=== PATIENT | male | born 1960 | race Caucasian/White ===

== ENCOUNTER 2018-03-29 12:45 | Emergency (ER) | payer OTHER, MEDICAID, SELFPAY ==
--- NOTE | 2018-03-29 12:54 | ED.BACK ---
HPI - Back Pain/Injury <NOEMI Dale - Last Filed: 03/29/18 22:44> General Chief Complaint: Back Pain/Injury Stated Complaint: BACK PAIN Time Seen by Provider: 03/29/18 13:03 History of Present Illness HPI Narrative: 57-year-old male here for complaint of pain into his left back area that started this morning. He denies any trauma to the area. He states he woke up with the pain. Pain is to metal the back of left paraspinal area. He denies any urinary symptoms. No abdominal pain. No shortness of breath. Patient is ambulatory into the emergency room. He denies any loss of bladder or bowel control. He does state that he has had a cough for the last few days that is nonproductive. Related Data Previous Rx's Medication Instructions Recorded cyclobenzaprine 10 mg PO TID PRN #12 tab 03/29/18 Allergies Allergy/AdvReac Type Severity Reaction Status Date / Time No Known Drug Allergies Allergy Verified 03/29/18 13:31 Review of Systems <NOEMI Dale - Last Filed: 03/29/18 22:44> Constitutional Denies chills, Denies fever(s), Denies lethargy and Denies weakness ENT Ears, Nose, Mouth, and Throat: Denies change in voice, Denies neck pain and Denies sore throat Cardiovascular Denies chest pain, Denies irregular heart rhythm, Denies lightheadedness, Denies palpitations and Denies orthopnea Respiratory Reports cough Gastrointestinal Gastrointestinal: Denies abdominal pain, Denies change in bowel habits, Denies diarrhea, Denies nausea and Denies vomiting Genitourinary Denies hematuria, Denies flank pain, Denies urinary incontinence and Denies urinary urgency Musculoskeletal Reports back pain and Denies neck pain Integumentary/Breasts Denies pruritus, Denies erythema, Denies rash and Denies wounds Neurologic Denies weakness Endocrine Denies palpitations Exam <NOEMI Dale - Last Filed: 03/29/18 22:44> Initial Vital Signs Initial Vital Signs: Vital Signs Temperature 97.4 F L 03/29/18 12:56 Pulse Rate 96 H 03/29/18 12:56 Respiratory Rate 20 03/29/18 12:56 Blood Pressure 132/76 H 03/29/18 12:56 Pulse Oximetry 100 03/29/18 12:56 Const General: cooperative and well developed Nutritional Appearance: well nourished Orientation: alert, awake, oriented x3 and not confused HENFL Mouth: oral mucosae normal and moist mucous membranes Eyes Conjunctivae: conjunctivae normal Sclera: sclerae normal Pupils: PERRL EOM: EOM intact bilaterally Chest Chest: normal inspection of the chest Resp Effort & Inspection: normal respiratory effort, able to speak in complete sentences, no respiratory distress and no use of accessory muscles Auscultation: clear to auscultation bilaterally, no rales, no rhonchi and no wheezes Cardio Rate: regular rate Rhythm: abnormal rhythm regularly irregular Heart Sounds: no click, no gallops, no murmurs and no rubs Pulses: normal peripheral pulses Skin General: no rashes or lesions noted, No jaundice and No petechiae Neuro General: alert, oriented x3, gait normal and no focal motor deficits Speech: speech normal <Danyel Medrano DO - Last Filed: 03/30/18 08:47> Initial Vital Signs Initial Vital Signs: Vital Signs Temperature 97.4 F L 03/29/18 12:56 Pulse Rate 96 H 03/29/18 12:56 Respiratory Rate 20 03/29/18 12:56 Blood Pressure 132/76 H 03/29/18 12:56 Pulse Oximetry 100 03/29/18 12:56 Course <NOEMI Dale - Last Filed: 03/29/18 22:44> Orders Ordered: Discontinued Medications Cyclobenzaprine HCl (Flexeril) 10 mg PO NOW ONE Stop: 03/29/18 13:15 Last Admin: 03/29/18 13:32 Dose: 10 mg Vital Signs - 8 hr 03/29/18 12:56 03/29/18 14:24 Temperature 97.4 F L Pulse Rate 96 H 76 Respiratory Rate 20 18 Blood Pressure 132/76 H Blood Pressure [Left Arm] 131/79 H Pulse Oximetry 100 98 <DO Lisy Wang Last Filed: 03/30/18 08:47> Orders Ordered: Discontinued Medications Cyclobenzaprine HCl (Flexeril) 10 mg PO NOW ONE Stop: 03/29/18 13:15 Last Admin: 03/29/18 13:32 Dose: 10 mg Vital Signs - 8 hr 03/29/18 12:56 03/29/18 14:24 Temperature 97.4 F L Pulse Rate 96 H 76 Respiratory Rate 20 18 Blood Pressure 132/76 H Blood Pressure [Left Arm] 131/79 H Pulse Oximetry 100 98 [facility] - Back Pain/Injury <Yariel BoneNOEMI - Last Filed: 03/29/18 22:44> Imaging Data Chest x-ray: Radiologist's impression: PROCEDURE: XR CHEST 2V INDICATIONS: 57 year-old male with cough for several days. TECHNIQUE: 2 views of the chest were acquired. COMPARISON: None available. FINDINGS: Surgical changes and devices: Patient is status post median sternotomy. Lungs and pleura: No pleural effusions or pneumothorax. Lungs are clear. Mediastinum: Mediastinal contours are normal. There is mild cardiomegaly, as well as extensive left ventricle posterior and inferior wall myocardial calcification. Bones and chest wall: No suspicious bony abnormalities. Soft tissues appear unremarkable. IMPRESSION: Mild cardiomegaly, as well as findings consistent with extensive nonacute posterior and inferior wall left ventricle myocardial infarct. Dictated by: Young Gomez M.D. on 03/29/2018 at 14:00 Approved by: Young Gomez M.D. on 03/29/2018 at 14:02 [facility] Narrative Medical decision making narrative: Chest x-ray was obtained was negative for any acute findings. Signs and symptoms presents as a thoracic paraspinal strain. He is prescribed cyclobenzaprine along with [id number] ibuprofen for the symptoms. Follow up with primary care provider. Return emergency room for any worsening symptoms. Discharge Plan Departure Patient Disposition: Home, Self-Care Clinical Impression: Thoracic back pain Discharge Date/Time: 03/29/18 15:25 Interventions: ED Discharge Assessment Last Done: 03/29/18 15:24 Instructions: DI for Thoracic Back Pain Activity Restrictions/Additional Instructions: Chest x-ray was obtained was negative for any acute findings. Signs and symptoms presents as muscle pain into your upper back. Use [id number] ibuprofen as needed for any discomfort. Muscle relaxer cyclobenzaprine as prescribed to help with muscle tension use as directed. Be advised of the muscle relaxer can make you feel drowsy no driving while on a muscle relaxer. Follow up with her primary care provider. Return emergency room for any worsening symptoms. Prescriptions: New cyclobenzaprine 10 mg tablet 10 mg PO TID PRN (Reason: muscle spasm) Qty: 12 RF: 0 Referrals: [facility] [Provider Group] <Danyel Medrano DO - Last Filed: 03/30/18 08:47> Cosign ED Attending Christofer Attestation: I was immediately available in the department for consultation. Documentation has been reviewed. I agree with assessment and plan.
[2018-03-29 12:56] VITALS: BP 132/76; PULSE 96; RESP 20; TEMP 36.3; O2SAT 100
--- NOTE | 2018-03-29 13:14 | DI.RAD.S_ITS ---
PROCEDURE: XR CHEST 2V INDICATIONS: 57 year-old male with cough for several days. TECHNIQUE: 2 views of the chest were acquired. COMPARISON: None available. FINDINGS: Surgical changes and devices: Patient is status post median sternotomy. Lungs and pleura: No pleural effusions or pneumothorax. Lungs are clear. Mediastinum: Mediastinal contours are normal. There is mild cardiomegaly, as well as extensive left ventricle posterior and inferior wall myocardial calcification. Bones and chest wall: No suspicious bony abnormalities. Soft tissues appear unremarkable. IMPRESSION: Mild cardiomegaly, as well as findings consistent with extensive nonacute posterior and inferior wall left ventricle myocardial infarct. Dictated by: Young Gomez M.D. on 03/29/2018 at 14:00 Approved by: Young Gomez M.D. on 03/29/2018 at 14:02
[2018-03-29] MEDS: CYCLOBENZAPRINE 10 MG TABLET PO (13:32)
--- NOTE | 2018-03-29 13:55 | PC.NURSE ---
patient c/o back pain worsened with movement and palpation, improved with ibuprofen and aspirin as well as non productive cough x 2 days. patient in no apparent distress. attempted to obtain urine sample, states he does not have to void presently. given instruction that urine sample is needed.
[2018-03-29 14:24] VITALS: BP 131/79; PULSE 76; RESP 18; O2SAT 98
== END 2018-03-29 15:25 | disposition home or self-care (01) ==
PROVIDERS: Emergency Provider Nurse Practitioner Family
DX: M54.6 Pain in thoracic spine (principal)
CPT/HCPCS: 71046; 81003; 99282; 99284

== ENCOUNTER → 2021-05-17 09:23 | Outpatient (CLI) | payer OTHER, MEDICAID, SELFPAY ==
--- NOTE | 2021-05-17 | DI.ECHO.S_ITS ---
[facility] +---------+ : : [address] : [address] [place] : : : : [id number] : : : : Phone: [phone]+ Echocardiogram Report + + :Name: HERIBERTO CAMPUZANO Study Date: 05/17/2021 Height: 69 in : :[facility] ReadingLocation: Weight: 155 lb : : Gender: Male BSA: 1.9 m2 : :: 1960 Age: 60 yrs BP: 139/82 mmHg: :Reason For Study: MITRAL INSUFFICIENCY : :Ordering Physician: DAFNE, : :ROBYN Performed By: Deidre Pham : :Referring: ROBYN CONN : + + Interpretation Summary 1) Nromal left ventricular thickness and size with mildly to moderately reduced systolic function (EF 40-45%). 2) Normal right ventricular size with mildly to moderately reduced systolic function. 3) Very severe biatral enlargement (right worse than left). 4) There is mild to moderate tricuspid regurgitation. 5) There is moderate mitral regurgitation. 6) The right ventricular systolic pressure is estimated to be at least 25 mmHg based on an estimated right atrial pressure of 3 mm Hg. 7) No prior Echo available for comparison. Procedure: A two-dimensional transthoracic echocardiogram with color flow and Doppler was performed. The study quality was technically good. There is no prior echocardiogram noted for this patient. The patient was in sinus rhythm with heart rates between 57-80 bpm during the exam. Left Ventricle: The left ventricle is normal in size and wall thickness. The ejection fraction is estimated to be 40-45%. There is a significant dyssynchronous contraction pattern, consistent with a conduction abnormality. Right Ventricle: The right ventricle is normal size. Right ventricular systolic function is moderately reduced. Atria: The left atrium is severely dilated. The right atrium is severely dilated. There is no Doppler evidence for an interatrial shunt. Mitral Valve: There is a flat closure plane of the the mitral valve leaflets. There are multiple regurgitant jets present. There is moderate mitral regurgitation. The mitral regurgitant jet is eccentrically directed. Aortic Valve: Questionable bicuspid valve with raphe. The aortic valve opens well. There is no aortic valve stenosis. There is mild aortic regurgitation. Tricuspid Valve: The tricuspid valve is normal in structure and function. There is mild to moderate tricuspid regurgitation. The right ventricular systolic pressure is estimated to be at least 25 mmHg based on an estimated right atrial pressure of 3 mm Hg. Pulmonic Valve: The pulmonic valve leaflets are thin and pliable; valve motion is normal. There is trace pulmonic regurgitation. Great Vessels: The aortic root is normal size. The dimensions of the ascending aorta are normal. The IVC is of normal diameter and collapses greater than 50% with a sniff. This suggests a low right atrial pressure of 3 mm Hg. Pericardium/ Pleura There is no pericardial effusion. There is no pleural effusion. MMode/2D Measurements & Calculations LVIDd: 4.9 cm LVOT diam: 2.4 cm LVIDs: 3.8 cm Ao root diam: 3.2 cm FS: 23.3 % asc Aorta Diam: 3.3 cm IVSd: 0.98 cm Ao Arch Diam (Prox Trans): 2.0 cm LVPWd: 1.3 cm LV lauren. diameter/BSA (cm/m^2): 2.6 LV sys. diameter/BSA (cm/m^2): 2.0 LA A2 area: 32.1 cm2 RA long axis: 8.7 cm LA A4 area: 34.2 cm2 RA area: 46.0 cm2 LA length (vol): 6.0 cm RA vol: 207.6 ml LA vol: 154.8 ml RA : 112.0 ml/m2 LA vol index: 83.5 ml/m2 IVC diam: 1.6 cm RVDd major: 5.0 cm RVD1 (basal): 3.5 cm RVD2 (mid): 2.7 cm TAPSE: 1.4 cm Doppler Measurements & Calculations Ao V2 max: 157.3 cm/sec MV E max silvio: 94.7 cm/sec Ao V2 mean: 102.1 cm/sec MV A max silvio: 2.3 cm/sec Ao max P.0 mmHg MV E/A: 42.0 Ao mean P.8 mmHg Med Peak E' Silvio: 12.0 cm/sec Ao V2 VTI: 28.0 cm E/E' med: 7.9 Lat Peak E' Silvio: 11.6 cm/sec E/E' lat: 8.2 E/e' average: 8.0 MV dec time: 0.12 sec MR ERO: 0.18 cm2 TR max silvio: 232.2 cm/sec MR PISA: 3.2 cm2 TR max P.1 mmHg MR flow rate: 99.7 cm3/sec PA V2 max: 68.5 cm/sec MR PISA radius: 0.71 cm PA V2 mean: 47.0 cm/sec PA mean P.0 mmHg PA pr(Accel): 8.8 mmHg Reading Physician:12:33 PM
== END ==
PROVIDERS: Referring Provider Internal Medicine Cardiovascular Disease; Visit Provider Internal Medicine Cardiovascular Disease
DX: I08.3 Combined rheumatic disorders of mitral, aortic and tricuspid valves (principal); R06.00 Dyspnea, unspecified
CPT/HCPCS: 93306